=== PATIENT | male | born 1990 | race Two or more races ===

== ENCOUNTER 2024-05-07 07:39 | Outpatient (REF) | payer MEDICAID, SELFPAY ==
[2024-05-07 10:41] LABS: MANUAL DIFF FLAG NO
[2024-05-07 11:01] LABS: Basophils Percent Auto 0.5 % (0-2); Eosinophils Absolute Auto 0.2 X10*3/uL (0.0-0.4); Eosinophils Percent Auto 2.6 % (0-4); Hematocrit 41.7 % (42.0-52.0); Hemoglobin 13.8 g/dl (14.0-18.0); Imm Gran Abs Auto 0.02 X10*3/uL (0.00-0.03); Imm Gran Pct Auto 0.3 % (0.0-0.4); Lymphocytes Percent Auto 29.7 % (20-40); Mean Corpuscular HGB Conc 33.1 g/dl (31.0-36.0); Mean Corpuscular Hemoglobin 28.8 pg (27.0-33.0); Mean Corpuscular Volume 86.9 fL (80.0-98.0); Mean Platelet Volume 12.6 fL (9.4-12.4); Monocytes Absolute Auto 0.5 X10*3/uL (0.1-1.2); Neutrophils Absolute Auto 3.9 x10*3/uL (2.0-8.3); Neutrophils Percent Auto 58.9 % (45-73); Platelet Count 195 X10*3/uL (160-400); White Blood Count 6.6 X10*3/uL (4.8-10.8)
[2024-05-07 11:27] LABS: Alanine Aminotransferase 48 U/L (0-40); Alkaline Phosphatase 107 U/L (39-117); Anion Gap 9 (12-20); Aspartate Amino Transferase 29 U/L (5-37); Bilirubin Total 0.4 mg/dL (0.0-1.0); Blood Urea Nitrogen 12 mg/dL (9-16); Calcium 8.5 mg/dL (8.4-10.2); Carbon Dioxide 29 mmol/L (22-29); Chloride 107 mmol/L (96-108); Cholesterol 154 mg/dL (<200); Estimated Glomerular Filt Rate > 60; Glucose Random 105 mg/dL (60-115); HDL Cholesterol 43 mg/dL (>40); LDL Cholesterol Calculated 94 mg/dL (<100); Potassium 4.6 mmol/L (3.3-5.1); Sodium 140 mmol/L (135-145); Total Protein 7.6 g/dL (6.5-8.0); Triglycerides 85 mg/dL (<150)
[2024-05-07 11:46] LABS: Thyroid Stimulating Hormone 1.56 uIU/mL (0.32-4.0)
== END 2024-05-07 07:40 | disposition home or self-care (01) ==
LOC: HO.10HDL 07:39
PROVIDERS: Visit Provider Internal Medicine
DX: Z00.01 Encounter for general adult medical examination with abnormal findings (principal); G47.33 Obstructive sleep apnea (adult) (pediatric); I10 Essential (primary) hypertension; R19.7 Diarrhea, unspecified
CPT/HCPCS: 36415; 80053; 80061; 81405; 81479; 82397; 83520; 84443; 85025; 86140; 88346; 88350

== ENCOUNTER 2024-11-30 08:01 | Day surgery (SDC) | payer MEDICAID, SELFPAY ==
--- OUTSIDE RECORDS SUMMARY | 2024-11-04 11:39 | XMS_ITS ---
Author Organization [facility] Address [address] [place] [phone] Care Team Providers Care Hedis Nurse Name Role Phone Jaimie Mendes Primary Care Provider Unavailab Sukhwinder Decker Jr [phone] REASON FOR VISIT bowel prep Problems No Known Problems Encounters Encounter Location Date Provider Diagnosis [facility] [address] [place] [phone] 11/04/2024 Sukhwinder Jernigan Jr Plan Of Treatment Next Appt Details Provider Name:Sukhwinder sevilla Jr, 11/30/2024 09:10:00 AM, [address] [place] [address], [phone], Progress Notes * CORINNE VENTURADOB:[birth year] (34 yo M)Acc No.[id number]:11/04/2024 Patient: CORINNE MENA :1990 A ge:34 Y S ex:Male Address:[address] [place] [address], [phone] * * Date:
[2024-11-26 09:49] VITALS: BMI 42.4
--- NOTE | 2024-11-29 08:53 | HO.ANESPROP2 ---
Documented by User: Akanksha Moore NP 11/29/24 08:55 HPI - Anesthesia Eval Consult details Narrative: 34yo M for Colonoscopy [facility] Past Medical History Medical History Hyperlipidemia DIEGO on CPAP Surgical History Surgical History No pertinent past surgical history Social History Social History Advance Directives: No Advance Directives Information Provided: Yes Meds Allergies Allergy/AdvReac Type Severity Reaction Status Date / Time No Known Allergies Allergy Verified 11/30/24 08:19 Home Medications ?Medication ?Instructions ?Recorded ?Confirmed ?Last Taken ?Type No Known Home Meds 11/26/24 11/26/24 Unknown History Exam Height,Weight and Vital Signs: Height 5 ft 10 in Weight 134.082 kg Assessment and Plan Assessment Anesthesia Assessment: Chart Reviewed Documented by User: Bert Grover MD 11/30/24 08:24 [facility] Past Medical History Medical History Hyperlipidemia DIEGO on CPAP Functional capacity: independent ambulation Family History Family history of problems with anesthesia: No Surgical History Surgical History No pertinent past surgical history History of Problems with Anesthesia: No Social History Social History Advance Directives: No Advance Directives Information Provided: Yes Meds Allergies Allergy/AdvReac Type Severity Reaction Status Date / Time No Known Allergies Allergy Verified 11/30/24 08:19 Home Medications ?Medication ?Instructions ?Recorded ?Confirmed ?Last Taken ?Type No Known Home Meds 11/26/24 11/26/24 Unknown History Exam Exam Date and Time: 11/30/2024 Airway Mallampati Class: II TM Dist: >3cm Neck ROM: Full Loose/Missing/Broken Teeth: No Heart: rrr Lungs: cta Other: normal Assessment and Plan Final Anesthetic Review Family History of Problems with Anesthesia: No History of Problems with Anesthesia: No NPO: Yes ASA Class: II Final Preanesthetic Review: No Changes in Pt Med Stat, Meds/Allgs Chart Reviewed, Consent Obtained/Reviewed and Anes Risks/Benef Reviewed Patient Risk: Low Procedure Risk: Low Anesthetic Plan Anesthetic Plan: MAC: Disposition: Standard PACU
--- NOTE | 2024-11-30 08:18 | MHC.SHP ---
Pre-Procedural Eval Section A - 24 Hr Update-Section A only Date of Service: 11/30/24 Section B - Complete if H&P > 30 days Chief Complaint: Change in bowel habit Details of Present Illness: see H&P no changes Relevant Family History (Specify if Yes): No Relevant Social History: None Present Medications: see Short Stay Collaborative assessment Medical History: No relevant PMH History of Previous Operations: No relevant previous surgery Allergies: Allergies Allergy/AdvReac Type Severity Reaction Status Date / Time No Known Allergies Allergy Verified 11/26/24 09:49 Review of Systems Sugical H&P ROS: Negative: Constitution, Cardiovascular, Respiratory, Neurological, Psychiatric, Hem-Onc, Allergic/Immunologic, Gastrointestinal, Genitourinary, Musculoskeletal, Integumentary, Endocrine and Eyes/Ears/Nose/Throat Exam Surgical H&P Exam: Normal: HEENT, Normal: Heart, Normal: Lungs, Normal: Extremities, Normal: Abdomen, Normal: Skin and Normal: Neurological Plan Diagnosis/Plan: Unchanged I have reviewed the history and physical and performed a pertinent physical examination on my patient. No changes have occurred unless specified. Time Spent With Patient Time: Total time managing care of this patient today ____ minutes.
[2024-11-30 08:20] VITALS: BP 141/74; PULSE 81; RESP 16; TEMP 36.5; O2SAT 98; BMI 42.6
[2024-11-30] MEDS: Lactated Ringers 1,000 ML 100 ML IVCONT (09:23)
[2024-11-30 09:39] VITALS: BP 107/63; PULSE 76; RESP 14; TEMP 36.4; O2SAT 96
[2024-11-30 09:54] VITALS: BP 105/62; PULSE 72; RESP 18; TEMP 36.7; O2SAT 100
--- NOTE | 2024-11-30 10:10 | OP_ITS ---
DATE OF SERVICE: 11/30/2024 SURGEON: Sukhwinder Jernigan MD INDICATIONS: Abdominal pain and change in bowel habits PREOPERATIVE DIAGNOSIS: POSTOPERATIVE DIAGNOSIS: PROCEDURE PERFORMED: Colonoscopy to the terminal ileum with biopsy. ESTIMATED BLOOD LOSS: COMPLICATIONS: ANESTHESIA: Monitored anesthesia care. ASSISTANTS: SPECIMENS: DESCRIPTION OF PROCEDURE: The history and physical was performed. The risks and benefits of the procedure were explained to the patient. Informed consent was obtained. The patient was placed in the left lateral decubitus position. A digital rectal exam was performed and was found to be normal. The Olympus pediatric video colonoscope was introduced into the rectum and advanced to the cecum. The cecum was identified by transillumination, palpation, and identification of ileocecal valve. Examination was performed. The scope was removed. He tolerated the procedure well and was returned to the recovery area in stable condition. FINDINGS: The terminal ileum was examined. This was normal. Biopsies were obtained. The visualized colonic mucosa was normal. The quality of the prep was good. In the cecum was a less than 5 mm sessile polyp, which was removed with a biopsy forceps. The 2nd polyp was identified and removed with a biopsy forceps measuring less than 5 mm, located at 75 cm. No other polyps were identified. Random sigmoid biopsies were obtained because of the patient's diarrheal symptoms. Retroflexed examination showed some small internal hemorrhoids. IMPRESSION: 1. Colon polyps. 2. Normal colonoscopy. RECOMMENDATION: Follow up the biopsy results. MD SARAI Flanagan/IVONEL / [id number]
== END 2024-11-30 10:23 | disposition home or self-care (01) ==
PROVIDERS: PCP Internal Medicine; Visit Provider Internal Medicine Gastroenterology
PROC: 0DJD8ZZ Inspection of Lower Intestinal Tract, Via Natural or Artificial Opening Endoscopic (ICD-10-PCS; CPT 45378; principal; 2024-11-30 09:10)
DX: R19.4 Change in bowel habit (principal); R10.9 Unspecified abdominal pain; D12.4 Benign neoplasm of descending colon; K63.5 Polyp of colon; R19.7 Diarrhea, unspecified; K62.89 Other specified diseases of anus and rectum; K64.8 Other hemorrhoids; E78.5 Hyperlipidemia, unspecified; G47.33 Obstructive sleep apnea (adult) (pediatric); Z99.89 Dependence on other enabling machines and devices
CPT/HCPCS: 45380; 88305; J2704

== ENCOUNTER 2025-03-18 10:20 | Outpatient (AMB) | payer MEDICAID, SELFPAY ==
--- OUTSIDE RECORDS SUMMARY | 2024-11-30 05:10 | XMS_ITS ---
Author Organization [facility] Address [address] [place] [phone] Care Team Providers Care Lavatory Attendant Name Role Phone Jaimie Mendes Primary Care Provider UnavailSukhwinder Bethea Jr REASON FOR VISIT change in bowel habits,abdominal pain Encounters Encounter Location Date Provider Diagnosis [facility] [place] [facility] Outpatient [address] [place], [place] [phone] 11/30/2024 Sukhwinder Jernigan Jr Plan Of Treatment No Information Progress Notes * CORINNE VENTURADOB:[birth year] (35 yo M)Acc No.[id number]:11/30/2024 COLON WITH MAC Patient: CORINNE MENA Provider: Bambi Jernigan MD :1990 A ge:34 Y S ex:Male Date:11/30/2024 Address:[address] [place], [place] [phone] Pcp:Jaimie Mendes Subjective: * Chief Complaints: * [...] 11/30/2024 Generated for Gaili ng/Faaureag/eTransmitting on: 1 11:39 AM EDT
--- NOTE | 2025-03-18 10:24 | A.OFFVIS_ITS ---
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: Yes Ironworker Apprentice Services: Ironworker Apprentice Present Information Interpreted: clinical only Allergies No Known Allergies Allergy (Verified 03/18/25 11:09) Medication List - Last Reconciled 03/18/25 by Randolph Kurtz MD losartan 100 mg PO DAILY HPI Comments Details: Previous weight loss efforts: self diets and exercise Wakes up: 5am, Sleeps: 12am Breakfast: x1-2/wk (bread) Lunch: skips Dinner: 7-8pm (rice, chicken, beans) Snacks: 10pm (sandwich) Exercise: home treadmill (tracks calories and inclines) Beverages: Coffee/Tea: none, Soda: diet soda, Juice: daily and large amounts, ETOH: rarely PFSH Medical History (Updated 03/18/25 @ 11:20 by Randolph Kurtz MD) Hypertension after donor nephrectomy requiring medication Sleep apnea treated with continuous positive airway pressure (CPAP) Morbid obesity Hyperlipidemia DIEGO on CPAP Surgical History Hx of colonoscopy No pertinent past surgical history Family History Mother No problems noted. Father Hypertension Diabetes Social History Are you a primary intensive care nurse to a significant other at home: No Do you presently have visiting nurse or other home services: No Alcohol intake: current Alcohol intake frequency: a few times a month Patient Tobacco Use Status: Never used Tobacco Physical Exam Vital Signs: Last Vital Signs Temp 97.1 F 03/18/25 10:30 Pulse 93 03/18/25 10:30 BP 143/80 H 03/18/25 10:30 Pulse Ox 96 03/18/25 10:30 Oxygen Delivery Method Room Air 03/18/25 10:30 BMI result Body Mass Index 44.4 GI Inspection: Yes normal to inspection (Android body habitus) and Yes obesity Palpation (GI): Soft to palpation Extrem Right lower extremity: normal to inspection Left lower extremity: normal to inspection Assessment & Plan Assessment & Plan (1) Morbid obesity: Code(s): E66.01 - Morbid (severe) obesity due to excess calories Category: Medical Plan: 1.? Plan for lap sleeve gastrectomy. If diaphragmatic or ventral hernias are present at time of surgery, these will be repaired laparoscopically as well. I emphasized the importance of close follow-up, adherence to instructions and good communication. The surgery does not replace the need to change your lifestlyle which is the cause of the obesity problem. The surgery provides the motivation to try again to change your lifestyle, it reduces the appetite and make the transition to a better lifestyle easier and doubles the amount of weight you would lose compared to doing the lifestyle change without the surgery. You will need to be on a liquid diet with protein shakes for 2 weeks before surgery to maximize weight loss and boost your nutritional status to recover better from surgery and also for the first two weeks after surgery to let the stomach heal before we introduce other foods. After the first 2 weeks we will introduce protein bars and soft foods like scrambled eggs, cottage cheese and yogurt and after the 6th week will introduce meat, fish and cooked vegetables in small amounts. Over time you should be able to eat everything in small amounts. Side effects like nausea, vomiting, heartburn or abdominal pain are not common in the practice unless you are not following in the practice. This operation requires lifetime commitment to following in our practice and communication with me. You will much less weight and experience side effects if you don?t communicate or not following in the practice. Complications are rare and in our practice is about 1/10 of the national average. However, you can develop bleeding that may require transfusion (hasn?t happened for year in the practice), you may from complications (we did not have any deaths in the practice) and infections. Infections are usually a result of breakdown in communication or not understanding or following directions correctly. They are difficult to treat, they can happen during the first 6 weeks, they may require to be in the hospital for weeks or even months, not being able to eat by mouth and you may have drains and surgeries to try and correct the issue. Other risks and complications include possible conversion to an open procedure, leaks, small bowel obstruction, blood clots, cardiac, or pulmonary complications, as long-term complications such as ulcers, insufficient weight loss and vitamin deficiencies. 2. Nutritional counseling. Start with one CELEBRATE REBUILD protein (buy online with the link I gave you) shakes (ONE scoop in 8oz low fat unsweetened almond milk) at 6am-8am, 1 protein bar (CELEBRATE protein bar, buy online with the link I gave you) ) at 9am-11am, another CELEBRATE REBUILD protein shake (ONE scoop in 8oz low fat unsweetened almond milk) at 12pm-2pm, another Celebrate protein bar at 3pm-5pm, dinner at 6pm (12 forks of protein and 12 forks of salad/vegetables). another Celebrate protein bar after dinner at 8pm-10pm. If you feel hungry you can have another HALF Celebrate protein bar at 11pm to midnight. So you do 2 protein shakes, 3 to 3.5 protein bars and one meal per day. Meal to include lean meat (beef, fish, pork, turkey, chicken), or Swedish yogurt, or egg whites, or beans with a salad with olive oil and fruits (berries, pears, apples, kiwi). Avoid salt, breads, potatoes, rice, pasta, desserts. 3. Each shake would be drunk slowly, like coffee in a period of 2 hours. 4. Cut each bar in 4 pieces and eat each piece in 30min ?to make each bar last 2 hours. 5. I emphasized the importance of measuring accurately the food portion and measure it when serving the food in plate 6. The meal portions include 10 full-size forks of meat and 10 full-size forks of salad. You always eat the meat portion but you can replace up to 5 forks for salad/vegetables with rice, potatoes or pasta, or a fruit ?if you like. The less you do it the better weight loss will be. 7. One full-size fork is what it can be scooped on the fork without falling aside and not what can be bit with the fork. Use regular forks like those you find in a typical restaurant. 8.? Please buy the body composition scale we discussed and send me weight measurements as soon as possible and then once a week. Always include your diet and exercise plan. 9. Start treadmill with an incline of 2.0 and speed of 3.0mph. Increase incline by 1 every 3 min to a max incline of 8.0, stay 3min at 8.0 and then return to 2.0 and repeat same steps until calorie goal is met. Goal is to burn 2000 calories per week on exercise, which means either 300 calories daily, or 400 calories 5 days per week. 10. Goal is to lose at least 1.5-2lbs per week 11. Goal to lose 10% of your weight before surgery, which is about 30lbs. Ultimate weight goal: 270lbs before surgery 12. Please follow the diet plan exactly without any change. If you don't like something about the plan or you feel hungry you need to communicate with me so I can help you revise the plan. You should not change the plan yourself 13. To be scheduled for EGD to assess the stomach's anatomy. The possibility of biopsies was discussed. Patient needs to avoid use of NSAIDs and aspirin for 1 week prior to EGD. You must be on liquids only the day before your endoscopy. Risks of perforation and bleeding was discussed with the patient. This will be an outpatient procedure with IV sedation. 14. We discussed the potential side-effects of the Phentermine such as irritability, dry mouth, difficulty sleeping, dizziness, numbness in feet and high blood pressure. I asked him to get a blood pressure monitor and measure the blood pressure daily in the morning and evening. He needs to send the blood pressure readings daily and to call the office for blood pressure over 140/80 an d he understands that. Orders: Orders Hemoglobin A1c Today E66.01 - Morbid (severe) obesity due to excess calories, G47.30 - Sleep apnea, unspecified, I97.3 - Postprocedural hypertension, Z90.5 - Acquired absence of kidney H Pylori Breath Test Today E66.01 - Morbid (severe) obesity due to excess calories, G47.30 - Sleep apnea, unspecified, I97.3 - Postprocedural hypertension, Z90.5 - Acquired absence of kidney Comprehensive Met. Panel Today E66.01 - Morbid (severe) obesity due to excess calories, G47.30 - Sleep apnea, unspecified, I97.3 - Postprocedural hypertension, Z90.5 - Acquired absence of kidney Zinc Today E66.01 - Morbid (severe) obesity due to excess calories, G47.30 - Sleep apnea, unspecified, I97.3 - Postprocedural hypertension, Z90.5 - Acquired absence of kidney C Reactive Protein Today E66.01 - Morbid (severe) obesity due to excess calories, G47.30 - Sleep apnea, unspecified, I97.3 - Postprocedural hypertension, Z90.5 - Acquired absence of kidney Vitamin B1 Today E66.01 - Morbid (severe) obesity due to excess calories, G47.30 - Sleep apnea, unspecified, I97.3 - Postprocedural hypertension, Z90.5 - Acquired absence of kidney TSH reflex Free T4 Today E66.01 - Morbid (severe) obesity due to excess calories, G47.30 - Sleep apnea, unspecified, I97.3 - Postprocedural hypertension, Z90.5 - Acquired absence of kidney Ferritin Today E66.01 - Morbid (severe) obesity due to excess calories, G47.30 - Sleep apnea, unspecified, I97.3 - Postprocedural hypertension, Z90.5 - Acquire d absence of kidney XR chest 2V Today E66.01 - Morbid (severe) obesity due to excess calories, G47.30 - Sleep apnea, unspecified, I97.3 - Postprocedural hypertension, Z90.5 - Acquired absence of kidney ECG 12 lead EKG Today E66.01 - Morbid (severe) obesity due to excess calories, G47.30 - Sleep apnea, unspecified, I97.3 - Postprocedural hypertension, Z90.5 - Acquired absence of kidney Insulin Today E66.01 - Morbid (severe) obesity due to excess calories, G47.30 - Sleep apnea, unspecified, I97.3 - Postprocedural hypertension, Z90.5 - Acquired absence of kidney Complete Blood Count Auto Diff Today E66.01 - Morbid (severe) obesity due to excess calories, G47.30 - Sleep apnea, unspecified, I97.3 - Postprocedural hypertension, Z90.5 - Acquired absence of kidney Lipid Panel Today E66.01 - Morbid (severe) obesity due to excess calories, G47.30 - Sleep apnea, unspecified, I97.3 - Postprocedural hypertension, Z90.5 - Acquired absence of kidney IRON PROFILE Today E66.01 - Morbid (severe) obesity due to excess calories, G47.30 - Sleep apnea, unspecified, I97.3 - Postprocedural hypertension, Z90.5 - Acquired absence of kidney Vitamin B12 and Folate Today E66.01 - Morbid (severe) obesity due to excess fatou ories, G47.30 - Sleep apnea, unspecified, I97.3 - Postprocedural hypertension, Z90.5 - Acquired absence of kidney Vitamin A Today E66.01 - Morbid (severe) obesity due to excess calories, G47.30 - Sleep apnea, unspecified, I97.3 - Postprocedural hypertension, Z90.5 - Acquired absence of kidney Vitamin D 25-OH Total Today E66.01 - Morbid (severe) obesity due to excess calories, G47.30 - Sleep apnea, unspecified, I97.3 - Postprocedural hypertension, Z90.5 - Acquired absence of kidney US abdomen comp w elastography Today E66.01 - Morbid (severe) obesity due to excess calories, G47.30 - Sleep apnea, unspecified, I97.3 - Postprocedural hypertension, Z90.5 - Acquired absence of kidney FL upper GI w air Today E66.01 - Morbid (severe) obesity due to excess calories, G47.30 - Sleep apnea, unspecified, I97.3 - Postprocedural hypertension, Z90.5 - Acquired absence of kidney Referrals Nutrition/Dietitian Referral E66.01 - Morbid (severe) obesity due to excess calories, G47.30 - Sleep apnea, unspecified, I97.3 - Postprocedural hyperte nsion, Z90.5 - Acquired absence of kidney Behavioral Health Referral E66.01 - Morbid (severe) obesity due to excess calories, G47.30 - Sleep apnea, unspecified, I97.3 - Postprocedural hypertension, Z90.5 - Acquired absence of kidney Medications: New phentermine must administer 30 minutes before or 1-2 hours after breakfast 37.5 mg PO DAILY 30 caps 0RF E66.01 - Morbid (severe) obesity due to excess calories, G47.30 - Sleep apnea, unspecified, I97.3 - Postprocedural hypertension, Z90.5 - Acquired absence of kidney
[2025-03-18 10:30] VITALS: BP 143/80; PULSE 93; TEMP 36.2; O2SAT 96; BMI 44.4
--- OUTSIDE RECORDS SUMMARY | 2025-03-18 11:39 | XMS_ITS | Patient Health Record ---
Author Organization [facility] Address [address] [facility] [address] [place] [address] Care Team Providers Care Manager Research Development Name Role Phone Cinthya Jaimie Primary Care Provider Unavailab Sukhwinder Decker Jr Unavailable Allergies No Known Allergies Results Component Value Reference Range Notes Pathology Reviewed date:12/02/2024 11:18:37 AM Interpretation: Performing Lab:[facility], [address] [place] [phone] Notes/Report: Reason For Referral Referring Provider First Name Jaimie Referring Provider Last Name Miguel Amassimo Referring Provider Speciality Internal M edicine Referred Organization [facility] Referred Provider Sukhwinder Jernigan Jr Referred Address [address] [place] [address],[address],[address], Referred Provider Specialty Gastroentero logy Referral Priority Routine Immunizations Vaccine Route Administration Date Status Comme nts Influenza Unknown 11/04/2024 Refused Social History Tobacco Use: Social History Observation Description Date Details (start date - stop date) Never Smoker NA - NA Tobacco Control (Standard) Question Answer Notes Tobacco use: Nonsmoker AUDIT-C (Standard) Question Answer Notes Did you have a drink containing alcohol in the p ast year? No Points 0 Interpretation Negative Problems Problem Type SNOMED Code ICD Code Onset Dates Problem Status W/U Status Risk Notes Problem Abdominal pain (36020539) Abdominal pain (R10.9) Active confirmed Problem Change in bowel habit (61934894) Change in bowel habit (R19.4) Active confirmed Vital Signs Temperature 98.0 degrees Fahrenheit 11/04/2024 Blood pressure diastolic 01 mm Hg 11/04/2024 Height 70 in 11/04/2024 Blood pressure systolic 001 mm Hg 11/04/2024 Weight 295.6 lbs 11/04/2024 BMI 42.41 kg/m2 11/04/2024 Encounters Encounter Location Date Provider Diagnosis [facility] [address] [facility] A[place] [id number] 11/30/2024 Sukhwinder Jernigan Jr [facility] [address] [place] [facility] [place] [address] 11/04/2024 Sukhwinder Jernigan Jr Abdominal pain R10.9 and Change in bowel habit R19.4 [facility] [address] [place] [facility] [place] [address] 11/04/2024 Sukhwinder Jernigan Jr [facility] [address] [facility] [place] [address] 11/23/2024 Sukhwinder Jernigan Jr [facility] [address] [place], [place] [address] [address] 12/02/2024 Sukhwinder Jernigan Jr Assessments Encounter Date Diagnosis (ICD Code) Assessment Notes Treatment Notes Treatment Clinical Notes Section Notes 11/04/2024 Abdominal pain (ICD-10 - R10.9) We discussed his symptoms today. We have recommended further evaluation with colonoscopy. He understands risks and benefits and agrees to proceed. Laboratory studies are reviewed in detail. Testing has been described as pattern not consistent with IBD . We reviewed this today. Colonoscopy with biopsies will be helpful to support this diagnosis and rule out underlying infectious causes. Stool studies may be necessary pending these results. 11/04/2024 Change in bowel habit (ICD-10 - R19.4) We discussed his symptoms today. We have recommended further evaluation with colonoscopy. He understands risks and benefits and agrees to proceed. Laboratory studies are reviewed in detail. Testing has been described as pattern not consistent with IBD . We reviewed this today. Colonoscopy with biopsies will be helpful to support this diagnosis and rule out underlying infectious causes. Stool studies may be necessary pending these results. Plan Of Treatment Future Test Test Name Order Date COLONOSCOPY 11/04/2024 Insurance Providers Payer Name Payer Address Payer Phone Subscriber Number Group Number Insured Name Patient Relationship to Insured Coverage Start Date Coverage End Date [place] [address] [place] [phone] [id number] CORINNE VENTURA Self - patient is the insured Medical (General) History Medical History History ICD Code Hyperlipidemia DIEGO/CPAP
== END 2025-03-18 11:48 | disposition home or self-care (01) ==
LOC: HO.HBS 10:20
PROVIDERS: PCP Internal Medicine; Visit Provider Surgery
DX: E66.01 Morbid (severe) obesity due to excess calories (principal)
CPT/HCPCS: 99204

== ENCOUNTER → 2025-03-18 10:20 | Outpatient (BNVA) | payer MEDICAID, SELFPAY | PROVIDERS: PCP Internal Medicine; Visit Provider Surgery | DX: E66.01 Morbid (severe) obesity due to excess calories (principal); G47.30 Sleep apnea, unspecified; I97.3 Postprocedural hypertension; Z90.5 Acquired absence of kidney; Z68.41 Body mass index [BMI] 40.0-44.9, adult | CPT/HCPCS: 99202 ==

== ENCOUNTER 2025-03-29 11:52 | Outpatient (REF) | payer MEDICAID, SELFPAY ==
--- OUTSIDE RECORDS SUMMARY | 2024-11-30 04:10 | XMS_ITS ---
Author Organization [facility] Address [address] [place] [phone] Care Team Providers Care Electrical Designer Name Role Phone Jaimie Mendes Primary Care Provider UnavailSukhwinder Bethea Jr REASON FOR VISIT change in bowel habits,abdominal pain Encounters Encounter Location Date Provider Diagnosis [facility] [address] [place], [place] [phone] 11/30/2024 Sukhwinder Jernigan Jr Plan Of Treatment No Information Progress Notes * CORINNE VENTURADOB:[birth year] (35 yo M)Acc No.[id number]:11/30/2024 COLON WITH MAC Patient: CORINNE MENA Provider: Bambi Jernigan MD :1990 A ge:34 Y S ex:Male Date:11/30/2024 Address:[address] [place], [place] [phone] Pcp:Jaimie Mendes Subjective: * Chief Complaints: * 1 . Change in bowel habits,abdominal pain. * Medical History: Objective: * Vitals: Assessment: Plan: * Treatment: * * The named appointment provid er may or may not be the originator of this progress note, and it is not deemed complete until electronically signed by the appointment provider. Sign off status: Pending * Provider: Bambi Jernigan MD Date: 0 11/30/2024 Generated for Gaili ng/Faaureag/eTransmitting on: 1 05/29/2024 01:54 PM EST
--- NOTE | ~2025-03-29 | XR_ITS ---
EXAMINATION: XR CHEST CLINICAL INFORMATION: E66.01 - Morbid (severe) obesity due to excess calories COMPARISON: None available. TECHNIQUE: 2 views of the chest were obtained. FINDINGS: Low lung volume is. Chronic size is likely within normal limits. Lungs are clear. There is no pneumothorax or pleural effusion. XR/XR chest 2V IMPRESSION: No acute disease. Electronically signed by: Amadeo East MD 03/29/2025 12:59 PM [facility]I
[2025-03-29 12:12] LABS: MANUAL DIFF FLAG NO
[2025-03-29 12:49] LABS: Hematocrit 41.4 % (42.0-52.0); Hemoglobin 13.6 g/dl (14.0-18.0); Imm Gran Abs Auto 0.01 X10*3/uL (0.00-0.03); Imm Gran Pct Auto 0.2 % (0.0-0.4); Lymphocytes Absolute Auto 2.4 X10*3/uL (1.2-4.9); Mean Corpuscular HGB Conc 32.9 g/dl (31.0-36.0); Mean Corpuscular Hemoglobin 28.0 pg (27.0-33.0); Mean Corpuscular Volume 85.2 fL (80.0-98.0); NRBC Abs Auto 0.000 X10*3/uL (0.0-0.012); NRBC Pct Auto 0.0 /100WBC (0.0-0.2); Platelet Count 204 X10*3/uL (160-400); Red Blood Count 4.86 X10*6/uL (4.60-5.80); White Blood Count 6.1 X10*3/uL (4.8-10.8)
--- NOTE | 2025-03-29 12:53 | ECG_ITS ---
Test Reason : E66.01 Blood Pressure : */* mmHG Vent. Rate : 74 BPM Atrial Rate : 74 BPM P-R Int : 150 ms QRS Dur : 100 ms QT Int : 362 ms P-R-T Axes : 3 -1 11 degrees QTcB Int : 401 ms Normal sinus rhythm Normal ECG No previous ECGs available Referred By: Randolph Kurtz Electronically Signed By: ANIBAL MCCOY MD
[2025-03-29 13:39] LABS: Alanine Aminotransferase 54 U/L (0-40); Albumin Level 4.6 g/dL (3.5-5.0); Alkaline Phosphatase 100 U/L (39-117); Anion Gap 10 (12-20); Aspartate Amino Transferase 28 U/L (5-37); Blood Urea Nitrogen 13 mg/dL (9-16); Calcium 9.1 mg/dL (8.4-10.2); Carbon Dioxide 27 mmol/L (22-29); Chloride 104 mmol/L (96-108); Cholesterol 155 mg/dL (<200); Estimated Glomerular Filt Rate > 60; Ferritin 223 ng/mL (20-250); HDL Cholesterol 43 mg/dL (>40); Iron 85 mcg/dL (45-160); Percent Iron Saturation 31 % (15-50); Potassium 4.0 mmol/L (3.3-5.1); Sodium 137 mmol/L (135-145); Total Iron Binding Capacity 276 mcg/dL (228-428); Total Protein 8.1 g/dL (6.5-8.0); Triglycerides 60 mg/dL (<150); Unsaturated Iron Binding 191 ug/dL
[2025-03-29 13:51] LABS: Folate 11.4 ng/mL (> or = 4.0); Vitamin B12 733 pg/mL (200-900)
--- OUTSIDE RECORDS SUMMARY | 2025-03-29 13:54 | XMS_ITS | Patient Health Record ---
Author Organization [facility] Address [address] [facility] [address] [place] [phone] Care Team Providers Care Nature Photographer Name Role Phone Cinthya Jaimie Primary Care Provider Unavailab Sukhwinder Decker Jr Unavailable Allergies No Known Allergies Results Component Value Reference Range Notes Pathology Reviewed date:12/02/2024 11:18:37 AM Interpretation: Performing Lab:[facility], [address] [place] [phone] Notes/Report: Reason For Referral Referring Provider First Name Jaimie Referring Provider Last Name Miguel Amsasimo Referring Provider Speciality Internal M edicine Referred Organization [facility] Referred Provider Sukhwinder Jernigan Jr Referred Address [address] [place] [address],[address],[address], Referred Provider Specialty Gastroentero logy Referral Priority [...] W/U Status Risk Notes Problem Abdominal pain (36013715) Abdominal pain (R10.9) Active confirmed Problem Change in bowel habit (35956447) Change in bowel habit (R19.4) Active confirmed Vital Signs Temperature 98.0 degrees Fahrenheit 11/04/2024 Blood pressure diastolic 01 mm Hg 11/04/2024 Height 70 in 11/04/2024 Blood pressure systolic 001 mm Hg 11/04/2024 Weight 295.6 lbs 11/04/2024 BMI 42.41 kg/m2 11/04/2024 Encounters Encounter Location Date Provider Diagnosis [facility] [place] [place] [id number] 11/30/2024 Sukhwinder Jernigan Jr [facility] [address] [place] [facility] [place] [address] 11/04/2024 Sukhwinder Jernigan Jr Abdominal pain R10.9 and Change in bowel habit R19.4 [facility] [address] [place] [facility] [place] [address] 11/04/2024 Sukhwinder Jernigan Jr [facility] [address] [facility] [place] [address] 11/23/2024 Sukhwinder Jernigan Jr [facility] [address] [place], [place] [address] [address] 12/02/2024 Sukhwinder Jernigan Jr Assessments Encounter Date [...] End Date [place] [address] [place] [phone] [id number] CORINNE VENTURA Self - patient is the insured Medical (General) History Medical History History ICD Code Hyperlipidemia DIEGO/CPAP
--- OUTSIDE RECORDS SUMMARY | 2025-03-29 13:54 | XMS_ITS | Clinical Summary ---
Author Organization [facility] Address [address] [place] [address] Care Team Providers Care Electric Arc Furnace Operator Name Role Phone Clarisse Ibrahim DMD Primary Care Provider [phone] Source Comments PLEASE NOTE, if this patient is a minor, it may be UNLAWFUL to discuss sensitive information that is contained in these records (such as FAMILY PLANNING, MENTAL HEALTH or SUBSTANCE ABUSE) with the minor patient's parent or other person without the patient's specific authorization.[facility] Allergies No known active allergies Medications ibuprofen (ADVIL,MOTRIN) 600 mg tabletIndication s:Dental infection Take 1 Tab by mouth 4 (four) times daily as needed for pain 12 Tab 02/18/2017 Active Active Problems No known active problems Social History Tobacco Use Types Packs/Day Years Used Date Smoking Tobacco: Never Passive Smoke Exposure: Never Smokeless Tobacco: Never Tobacco Cessation:Counseling Given: Not Answered Social Connections Answer Date Recorded Connectedness 0 02/02/2024 Financial Resource Strain Answer Date R ecorded Financial Resource Strain 0 2023 Stress Answer Date Recorded Stress 0 07/18/2023 Physical Activity Answer Date Recorded Physical Activity 0 07/18/2023 Food Insecurity Answer Date Recorded Food 0 02/12/2024 Transportation Needs Answer Date Record ed Transportation 0 07/18/2023 Housing Stability Answer Date Recorded Housing 0 07/18/2023 Safety and Environment Answer Date Dwaine rded Safety 0 07/18/2023 Utilities Answer Date Recorded Utilities 0 07/18/2023 Employment Answer Date Recorded Stress 0 02/02/2024 Sex and Gender Information Value Date Recorded Sex Assigned at Not on file Legal Sex Male 11:36 AM PDT Gender Identity Not on file Sexual Orientation Not on file Last Filed Vital Signs Vital Sign Reading Time Taken Comments Blood Pressure 136/88 09/16/2024 3:12 PM EDT Pulse 72 09/16/2024 3:12 PM EDT Temperature - - Respiratory Rate - - Oxygen Saturation - - Inhaled Oxygen Concentration - - Weight - - Height - - Body Mass Index - - Plan of Treatment Upcoming Encounters Date Type Department Care Team ([facility] st Contact Info) Description 04/27/2025 3:00 PM EST Office Visit [facility] [address] [place] [phone] Leni Gilman, DDS [address] [place] [address] Health Maintenance Due Date Last Done Comments Anxiety Screening 1992 Hepatitis C Screening 1992 HIV Screening 01/27/2007 Imm-DTaP/Tdap/Td (1 - Tdap) 01/27/2011 Imm-Hepatitis B (1 of 3 - 19 + 3-dose series) 01/27/2011 Imm-HPV (1 - 3-dose SCDM series) 01/27/2019 Alcohol and Drug Screen 05/19/2024 Depression Annual Screen 05/19/2024 Egi-OELCS-24 ( season) 2025 Imm-Influenza (#1) 2025 Dental BW 08/11/2025 08/09/2024, 01/19, 07/29/2023 Dental Examination 08/11/2025 08/09/2024, 0 02/16/2024, 07/29/2023 Dental Perio Charting 08/11/2025 08/09/2024, 024 Dental Prophy 08/11/2025 08/09/2024, 01/19, 07/29/2023 Hypertension Screening (#1) 09/16/2025 Tobacco Screening 09/16/2025 09/16/2024 Dental FMX/Pano 07/30/2028 07/29/2023 Procedures Procedure Name Priority Date/Time Associated Diagnosis Comments COMP PERIODONTAL EVALUATION - NEW/EST PATIENT Routine 08/09/2024 3:00 PM EDT Chronic gingivitis, plaque induced Encounter for dental examination and cleaning with abnormal findings BITEWINGS - FOUR RADIOGRAPHIC IMAGES Routine 08/09/2024 3:00 PM EDT Chronic gingivitis, plaque induced Encounter for dental examination and cleaning with abnormal findings PROPHYLAXIS - ADULT Routine 08/09/2024 3 :00 PM EDT Chronic gingivitis, plaque induced Encounter for dental examination and cleaning with abnormal findings PERIODIC ORAL EVALUATION ESTABLISHED PATIENT Routine 08/09/2024 3:00 PM EDT Chronic gingivitis, plaque induced Encounter for dental examination and cleaning with abnormal findings Full INTRAORAL - COMP SERIES OF RADIOGRAPHIC IMAGES Routine 07/29/2023 10:00 AM EDT Caries of enamel (incipient) Dental caries on smooth surface penetrating into dentin from Last 3 Months or Most Recently Relevant to Health Maintenance Insurance [place] MED[place]ID D[place] [address] [employer] Care Teams Electric Arc Furnace Operator Relationship Specialty Start Date End Date Clarisse Ibrahim DMD [address] [place] [address] PCP - General 01/28/19
== END 2025-03-29 11:53 | disposition home or self-care (01) ==
LOC: HO.LAB 11:52
PROVIDERS: PCP Internal Medicine; Visit Provider Surgery
DX: E66.01 Morbid (severe) obesity due to excess calories (principal); I97.3 Postprocedural hypertension; G47.30 Sleep apnea, unspecified; Z90.5 Acquired absence of kidney
CPT/HCPCS: 36415; 71046; 80053; 80061; 82306; 82607; 82728; 82746; 83036; 83525; 83540; 84425; 84443; 84590; 84630; 85025; 86140; 93005

== ENCOUNTER → 2025-03-29 12:12 | Outpatient (BNV) | payer MEDICAID, SELFPAY | PROVIDERS: PCP Internal Medicine; Visit Provider Radiology Diagnostic Radiology | DX: E66.01 Morbid (severe) obesity due to excess calories (principal); Z68.41 Body mass index [BMI] 40.0-44.9, adult | CPT/HCPCS: 71046 ==

== ENCOUNTER → 2025-03-29 12:53 | Outpatient (BNV) | payer MEDICAID, SELFPAY | PROVIDERS: PCP Internal Medicine; Visit Provider Internal Medicine Cardiovascular Disease | DX: E66.01 Morbid (severe) obesity due to excess calories (principal); Z68.41 Body mass index [BMI] 40.0-44.9, adult | CPT/HCPCS: 93010 ==

== ENCOUNTER 2025-05-17 07:40 | Day surgery (SDC) | payer MEDICAID, SELFPAY ==
--- OUTSIDE RECORDS SUMMARY | 2024-11-30 04:10 | XMS_ITS ---
Author Organization [facility] Address [address] [place] [phone] Care Team Providers Care Adjunct Writing Instructor Name Role Phone Jaimie Mendes Primary Care Provider Unavailab Sukhwinder Decker Jr REASON FOR VISIT change in bowel habits,abdominal pain Encounters Encounter Location Date Provider Diagnosis [facility] [address] [place] [phone] 11/30/2024 Sukhwinder Jernigan Jr Plan Of Treatment No Information Progress Notes * CORINNE VENTURADOB:[birth year] (35 yo M)Acc No.[id number]:11/30/2024 COLON WITH MAC Patient: CORINNE MENA Provider: Bambi Jernigan MD :1990 A ge:34 Y S ex:Male Date:11/30/2024 Address:[address] [place], [place] [phone] Pcp:Jaimie Mendes Subjective: * Chief Complaints: * C hange in bowel habits,abdominal pain Billing Information: * Procedure Codes: * The named appointment provid er may or may not be the originator of this progress note, and it is not deemed complete until electronically signed by the appointment provider. Sign off status: Pending * Provider: Bambi Jernigan MD Date: 0 11/30/2024 Generated for Stella ponce/Alina/eTransmitting on: 1 06/07/2024 04:26 PM EST
--- OUTSIDE RECORDS SUMMARY | 2025-04-07 16:26 | XMS_ITS | Patient Health Record ---
Author Organization [facility] Address [address] [facility] [address] [place] [address] Care Team Providers Care Shipper And Receiving Name Role Phone Cinthya Jaimie Primary Care Provider Unavailab Sukhwinder Decker Jr Unavailable Allergies No Known Allergies Results Component Value Reference Range Notes Pathology Reviewed date:12/02/2024 11:18:37 AM Interpretation: Performing Lab:[facility], [address] [place] [phone] Notes/Report: Reason For Referral Referring Provider First Name Jaimie Referring Provider Last Name Cinthya Referring Provider Speciality Internal M edicine Referred Organization [facility] Referred Provider Sukhwinder Jernigan Jr Referred Address [address] [place] [address],[address],[address], Referred Provider Specialty Gastroentero logy Referral Priority Routine Medications Medication SIG (Take, Route, Frequency, Duration) Notes Start Date End Date Status Bisacodyl EC 5 MG Tablet Delayed Release TAKE 4 TABLETS BY MOUTH ONCE FOR BOWEL PREP Oral; Duration: 1 Days Active Immunizations Vaccine Route Administration Date Status Comme nts Influenza Unknown 11/04/2024 Refused Social History Tobacco Use: Social History Observation Description Date Details (start date - stop date) Never Smoker NA - NA Social History Drug/Alcohol: Social Info Question Answer Notes AUDIT-C (Standard) Did you have a drink containing alcohol in the past year? No Points 0 Interpretation Negative Tobacco Use: Social Info Question Answer Notes Tobacco Control (Standard) Tobacco use: Nonsmoker Additional Details Category Social Info Options Details Miscellaneous: Marital status: Occupation: galindo Problems Problem Type SNOMED Code ICD Code Onset Dates Problem Status W/U Status Risk Notes Problem Abdominal pain (19640535) Abdominal pain (R10.9) Active confirmed Problem Change in bowel habit (59072280) Change in bowel habit (R19.4) Active confirmed Vital Signs Temperature 98.0 degrees Fahrenheit 11/04/2024 Blood pressure diastolic 01 mm Hg 11/04/2024 Height 70 in 11/04/2024 Blood pressure systolic 001 mm Hg 11/04/2024 Weight 295.6 lbs 11/04/2024 BMI 42.41 kg/m2 11/04/2024 Encounters Encounter Location Date Provider Diagnosis [facility] [address] [place] [id number] 11/30/2024 Sukhwinder Jernigan Jr [facility] [address] [place] [address] 11/04/2024 Sukhwinder Jernigan Jr Abdominal pain R10.9 and Change in bowel habit R19.4 [facility] [address] [place] [address] 11/04/2024 Sukhwinder Jernigan Jr [facility] [address] [place] [address] 11/04/2024 Sukhwinder Jernigan Jr [facility] [address] [place] [address] 11/04/2024 Sukhwinder Jernigan Jr [facility] [address] [place] [address] 11/04/2024 Sukhwinder Jernigan Jr [facility] [address] [place] [address] 11/04/2024 Sukhwinder Jernigan Jr [facility] [address] [place] [address] 11/23/2024 Sukhwinder Jernigan Jr [facility] [address] [place] [address] 12/02/2024 Sukhwinder Jernigan Jr Assessments Encounter Date [...] Start Date Coverage End Date [facility] [address] [place] [id number] CORINNE VENTURA Self - patient is the insured Medical (General) History Medical History History ICD Code Hyperlipidemia DIEGO/CPAP
--- NOTE | 2025-05-11 09:12 | HO.ANESPROP2 ---
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 Father Hypertension Diabetes Family history of problems with anesthesia: No Surgical History Surgical History Hx of colonoscopy No pertinent past surgical history History of Problems with Anesthesia: No Social History Social History Are you a primary group care worker to a significant other at home: No Do you presently have visiting nurse or other home services: No Alcohol intake: current Alcohol intake frequency: a few times a month Patient Tobacco Use Status: Never used Tobacco Meds Allergies Allergy/AdvReac Type Severity Reaction Status Date / Time No Known Allergies Allergy Verified 05/17/25 07:03 Home Medications ?Medication ?Instructions ?Recorded ?Confirmed ?Last Taken ?Type losartan 100 mg tablet 100 mg PO DAILY 03/18/25 05/17/25 Unknown History Exam Pertinent Lab Results Pertinent Lab Results: Laboratory Tests 03/29/25 12:10 WBC 6.1 RBC 4.86 Hgb 13.6 L Plt Count 204 Sodium 137 Potassium 4.0 Chloride 104 BUN 13 Creatinine 0.84 Narrative Narrative: EKG 03/2025 Vent. Rate : 74 BPM Atrial Rate : 74 BPM P-R Int : 150 ms QRS Dur : 100 ms QT Int : 362 ms P-R-T Axes : 3 -1 11 degrees QTcB Int : 401 ms Normal sinus rhythm Normal ECG No previous ECGs available Assessment and Plan Assessment Anesthesia Assessment: Chart Reviewed Final Anesthetic Review Family History of Problems with Anesthesia: No History of Problems with Anesthesia: No Documented by User: Mary Mccoy MD 05/17/25 07:36 PMFSH Active Problems Active Problems: All Active Problems q Vitamin B1 deficiency (Acute) Vitamin D deficiency (Acute) Hypertension after donor nephrectomy requiring medication (Acute) Sleep apnea treated with continuous positive airway pressure (CPAP) (Acute) Morbid obesity (Acute) Past Medical History Medical History 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 Father Hypertension Diabetes Surgical History Surgical History Hx of colonoscopy No pertinent past surgical history Social History Social History Are you a primary group care worker to a significant other at home: No Do you presently have visiting nurse or other home services: No Alcohol intake: current Alcohol intake frequency: a few times a month Patient Tobacco Use Status: Never used Tobacco Meds Allergies Allergy/AdvReac Type Severity Reaction Status Date / Time No Known Allergies Allergy Verified 05/17/25 07:03 Home Medications ?Medication ?Instructions ?Recorded ?Confirmed ?Last Taken ?Type losartan 100 mg tablet 100 mg PO DAILY 03/18/25 05/17/25 Unknown History Exam Airway Mallampati Class: Patient Non-Cooperative TM Dist: >3cm Neck ROM: Full Loose/Missing/Broken Teeth: No Heart: RRR Lungs: CTA Assessment and Plan Assessment Anesthesia Assessment: Anesthesia Plan Discussed Final Anesthetic Review NPO: Yes ASA Class: III Final Preanesthetic Review: Meds/Allgs Chart Reviewed, Consent Obtained/Reviewed and Anes Risks/Benef Reviewed Patient Risk: Intermediate Procedure Risk: Intermediate Anesthetic Plan Anesthetic Plan: MAC: Disposition: Standard PACU
[2025-05-13 09:59] VITALS: BMI 44.3
[2025-05-17 06:57] VITALS: BP 138/78; PULSE 82; RESP 18; TEMP 36.1; O2SAT 98; BMI 41.1
--- NOTE | 2025-05-17 07:30 | MHC.SHP ---
Pre-Procedural Eval Section A - 24 Hr Update-Section A only Date of Service: 05/17/25 The patient is an INPATIENT: No The patient has been examined within 24 hours of the surgical procedure. The History & Physical has been completed within 30 days and I have reviewed it.: Yes Section B - Complete if H&P > 30 days Chief Complaint: Obesity, unspecified Relevant Family History (Specify if Yes): No Relevant Social History: None Present Medications: None Medical History: No relevant PMH History of Previous Operations: No relevant previous surgery Allergies: Allergies Allergy/AdvReac Type Severity Reaction Status Date / Time No Known Allergies Allergy Verified 05/17/25 07:03 Review of Systems Sugical H&P ROS: Negative: Constitution, Cardiovascular, Respiratory, Neurological, Psychiatric, Hem-Onc, Allergic/Immunologic, Gastrointestinal, Genitourinary, Musculoskeletal, Integumentary, Endocrine and Eyes/Ears/Nose/Throat Exam Surgical H&P Exam: Normal: HEENT, Normal: Heart, Normal: Lungs, Normal: Extremities, Normal: Abdomen, Normal: Skin and Normal: Neurological Plan Diagnosis/Plan: Unchanged (EGD to assess the stomach's anatomy. Risks of bleeding and perforation were discussed with the patient and he is in agreement with the plan.) I have reviewed the history and physical and performed a pertinent physical examination on my patient. No changes have occurred unless specified. Time Spent With Patient Time: Total time managing care of this patient today ____ minutes.
--- NOTE | 2025-05-17 07:33 | PM.OP ---
Brief Operative Note Date of Service: 05/17/25 Pre-op diagnosis: Morbid obesity Post-op diagnosis: same Procedure: PROCEDURE DATE: 05/17/2025 PREOPERATIVE DIAGNOSIS: Morbid obesity POSTOPERATIVE DIAGNOSIS: ?Same as above. 1) Duodenitis, 2 Gastritis PROCEDURE: [id number]-[id number] with biopsies Surgeon: ?Flaquito Kurtz M.D.. Ph.D. Accounting Reconciliation Clerk: None ? Anesthesia: IV sedation Estimated blood loss: ?Minimal FINDINGS AND PROCEDURE: ? OPERATIVE INDICATIONS: ?The patient is a 35 year old male known to me who is interested in bariatric surgery. Based on this information I recommended an upper endoscopy to evaluate the patient's symptoms. Risks and complications of the surgery were discussed with the patient in advance particularly the possibility of perforation or bleeding that may require surgical intervention. The patient understood the risks and was in agreement with the plan. ? PROCEDURE: After informed consent was obtained by the patient, the patient was ?transferred to the Operating Room and was placed in the supine position.? After successful induction of IV sedation, a mouth block was inserted and the patient was placed in the left lateral decubitus position. An upper endoscopy was performed next, the oropharynx and esophagus appeared within the normal limits. There was no hiatal hernia. The z-line was smooth. Two biopsies were obtained from the distal esophagus 2-3 cm proximal to the GE junction and two additional biopsies from the GE junction. The stomach was entered and it appeared to be of normal size. There was gastritis in the prepyloric area. There was no stricture or ulcer. A biopsy was obtained from the gastric fundus and the antrum. No significant bleeding was noted from any of the biopsy sites. Retroflexion of the scope confirmed the presence of a normal GE junction. The scope was then advanced into the duodenum all the way to the 3rd portion. The 1st and 2nd portion of duodenum, appeared inflammed with erythema and superficial erosions. A biopsy was obtained.. At that point the duodenum ?and the stomach were decompressed and the scope was withdrawn from the patient's mouth. The patient extubated and was transferred in stable condition to the Recovery Room for further care. I was present and performed all steps of the procedure. There were no residents to assist with this case. Flaquito Kurtz M.D., Ph.D. Surgeon: Randolph Kurtz MD Anesthesia: MAC Was an Accounting Reconciliation Clerk used for this Procedure?: No Estimated blood loss (mL): 0 IV fluids (mL): 400 Urine output (mL): 0 (No [place] to record output) Pathology: other (1) antrum x1, 2) fundus x1, 3) GE junction x2, 4) distal esophagus x2, 5) Duodenum x1) Condition: stable Disposition: PACU
[2025-05-17 08:05] VITALS: BP 129/80; PULSE 89; RESP 18; TEMP 36.3; O2SAT 99
[2025-05-17 08:20] VITALS: BP 143/82; PULSE 78; RESP 20; TEMP 36.3; O2SAT 99
== END 2025-05-17 08:50 | disposition home or self-care (01) ==
LOC: HO.SSS 07:40
PROVIDERS: PCP Internal Medicine; Visit Provider Surgery
PROC: 0DJ08ZZ Inspection of Upper Intestinal Tract, Via Natural or Artificial Opening Endoscopic (ICD-10-PCS; CPT 43235; principal; 2025-05-17 07:30)
DX: E66.01 Morbid (severe) obesity due to excess calories (principal); Z68.41 Body mass index [BMI] 40.0-44.9, adult; K29.80 Duodenitis without bleeding; K29.50 Unspecified chronic gastritis without bleeding; B96.81 Helicobacter pylori [H. pylori] as the cause of diseases classified elsewhere; I97.3 Postprocedural hypertension; Z90.5 Acquired absence of kidney; E55.9 Vitamin D deficiency, unspecified; E51.9 Thiamine deficiency, unspecified; E78.5 Hyperlipidemia, unspecified; G47.33 Obstructive sleep apnea (adult) (pediatric); Z79.899 Other long term (current) drug therapy; Z99.89 Dependence on other enabling machines and devices
CPT/HCPCS: 43239; 88305; 88313; 88342; J2250; J2704

== ENCOUNTER → 2025-05-17 07:40 | Outpatient (BNV) | payer MEDICAID, SELFPAY | PROVIDERS: PCP Internal Medicine; Visit Provider Surgery | DX: K29.80 Duodenitis without bleeding (principal); K29.70 Gastritis, unspecified, without bleeding; E66.01 Morbid (severe) obesity due to excess calories; Z68.41 Body mass index [BMI] 40.0-44.9, adult | CPT/HCPCS: 43239 ==